=== PATIENT | female | born 1985 | race Hispanic/Latino ===

== ENCOUNTER 2017-07-16 03:06 | Outpatient (CLI) | payer BC ==
[2017-07-16 04:10] VITALS: BP 110/72
[2017-07-16] MEDS ORDERED: LACTATED RINGERS 1,000 ML IV ONE (04:49)
== END 2017-07-16 06:49 | disposition home or self-care (01) ==
LOC: TRG 03:06
PROVIDERS: ATTEND Obstetrics & Gynecology Gynecology
DX: O47.1 False labor at or after 37 completed weeks of gestation (principal); Z3A.38 38 weeks gestation of pregnancy
CPT/HCPCS: 59025; 96360; J7120